=== PATIENT | female | born 1985 | race African-American/Black ===

== ENCOUNTER 2017-05-21 01:45 | Emergency (ER) | payer MEDICAID | END 2017-05-21 02:28 | disposition home or self-care (01) | LOC: D.ER 01:45 | DX: S21.011A Laceration without foreign body of right breast, initial encounter (principal); X58.XXXA Exposure to other specified factors, initial encounter; Y93.89 Activity, other specified; Y92.89 Other specified places as the place of occurrence of the external cause; E11.9 Type 2 diabetes mellitus without complications; F17.200 Nicotine dependence, unspecified, uncomplicated ==

== ENCOUNTER 2017-11-15 21:51 | Emergency (ER) | payer MEDICAID ==
[2017-11-15 22:42] LABS: BASOPHILS 0.1 % (0-2); EOSINOPHILS 2.6 % (0-7); HEMATOCRIT 42.8 % (36.0-48.0); HEMOGLOBIN 14.4 g/dL (12-16); IMMATURE GRANULOCYTES 0.4 % (0-5); LYMPHOCYTES 30.4 % (15-50); MCHC 33.6 g/dL (31.0-37.0); MCV 86.1 fL (80.0-100.0); NEUTROPHILS 57.5 % (40-80); PLATELET COUNT 368 10x3/uL (130-400); RBC 4.97 10x6/uL (4.00-5.40); RDW 12.9 % (11.5-14.5); WBC 10.3 10x3/uL (4.8-10.8)
[2017-11-15 22:54] LABS: HCG SERUM NEGATIVE (NEGATIVE)
[2017-11-15 22:58] LABS: ALBUMIN 3.5 g/dL (3.4-5.0); ANION GAP 14.9 mmol/L (8-16); BILIRUBIN - TOTAL 0.26 mg/dL (0.2-1.3); CALCIUM 8.7 mg/dL (8.5-10.1); CARBON DIOXIDE 26.1 mmol/L (21.0-32.0); PROTEIN - SERUM 7.5 g/dL (6.4-8.2)
[2017-11-16 00:29] LABS: APPEARANCE HAZY (CLEAR); COLOR YELLOW (YELLOW)
[2017-11-16 00:30] LABS: BACTERIA FEW /hpf (NONE SEEN); BILIRUBIN NEGATIVE (NEGATIVE); EPITHELIAL CELLS 0-5 /hpf (0-5); GLUCOSE NEGATIVE (NEGATIVE); KETONE NEGATIVE (NEGATIVE); MUCUS <1+ /lpf (NONE SEEN); NITRITE NEGATIVE (NEGATIVE); PROTEIN NEGATIVE (NEGATIVE); UROBILINOGEN NORMAL (NORMAL); WHITE CELLS - URINE NSEEN /hpf (0-5)
== END 2017-11-16 00:55 | disposition home or self-care (01) ==
LOC: D.ER 21:51
PROVIDERS: Family Medicine; Physician Assistant Medical
DX: N93.8 Other specified abnormal uterine and vaginal bleeding (principal); F17.200 Nicotine dependence, unspecified, uncomplicated

== ENCOUNTER 2017-11-27 21:05 | Emergency (ER) | payer MEDICAID ==
[2017-11-27 21:56] LABS: BASOPHILS 0.1 % (0-2); EOSINOPHILS 3.1 % (0-7); IMMATURE GRANULOCYTES 0.3 % (0-5); LYMPHOCYTES 24.5 % (15-50); MCH 28.7 pg (26.0-34.0); MCHC 33.3 g/dL (31.0-37.0); MCV 86.1 fL (80.0-100.0); MEAN PLATELET VOLUME 9.2 fL (7.4-10.4); MONOCYTES 8.7 % (2-11); NEUTROPHILS 63.3 % (40-80); PLATELET COUNT 345 10x3/uL (130-400); RBC 4.18 10x6/uL (4.00-5.40); RDW 13.1 % (11.5-14.5); WBC 9.3 10x3/uL (4.8-10.8)
[2017-11-27 22:10] LABS: ALBUMIN 3.2 g/dL (3.4-5.0); ANION GAP 10.2 mmol/L (8-16); BILIRUBIN - TOTAL 0.21 mg/dL (0.2-1.3); CALCIUM 8.1 mg/dL (8.5-10.1); CARBON DIOXIDE 28.2 mmol/L (21.0-32.0); POTASSIUM - SERUM 3.4 mmol/L (3.5-5.1); PROTEIN - SERUM 6.8 g/dL (6.4-8.2)
[2017-11-27 22:15] LABS: APPEARANCE CLEAR (CLEAR); BILIRUBIN NEGATIVE (NEGATIVE); COLOR DK YELLOW (YELLOW); GLUCOSE NEGATIVE (NEGATIVE); KETONE NEGATIVE (NEGATIVE); NITRITE NEGATIVE (NEGATIVE); PROTEIN NEGATIVE (NEGATIVE); SPECIFIC GRAVITY 1.015 (1.005-1.020); UROBILINOGEN NORMAL (NORMAL)
[2017-11-27 22:17] LABS: BACTERIA FEW /hpf (NONE SEEN); EPITHELIAL CELLS 0-5 /hpf (0-5); RED CELLS - URINE >50 /hpf (0-5)
[2017-11-27 23:57] LABS: HCG SERUM NEGATIVE (NEGATIVE)
== END 2017-11-28 01:25 | disposition home or self-care (01) ==
LOC: D.ER 21:05
PROVIDERS: Emergency Medicine; Physician Assistant
DX: N93.8 Other specified abnormal uterine and vaginal bleeding (principal); E11.9 Type 2 diabetes mellitus without complications

== ENCOUNTER → 2017-12-16 11:05 | Outpatient (CLI) | payer MEDICAID | END | disposition home or self-care (01) | LOC: D.US 11:05 | DX: E03.9 Hypothyroidism, unspecified (principal) ==